=== PATIENT | female | born 1985 | race Caucasian/White ===

== ENCOUNTER 2021-05-05 06:55 | Day surgery (SDC) | payer OTHER ==
[~2021-05-05 06:55] MED LIST: PRENATAL TABLE1 EAC2 PO
== END 2021-05-05 18:30 | disposition home or self-care (01) ==
LOC: CIR.AMB 06:55
PROVIDERS: ATTEND Surgery
DX: D05.12 Intraductal carcinoma in situ of left breast (principal); N62 Hypertrophy of breast; Z20.822 Contact with and (suspected) exposure to COVID-19